=== PATIENT | male | born 1980 | race Hispanic/Latino ===

== ENCOUNTER 2018-04-18 21:12 | Inpatient (IN) | payer SELFPAY ==
[~2018-04-18] VITALS: Ht 177.8 cm; Wt 81.0 kg
[2018-04-18 21:52] LABS: BASOPHILS % (AUTO) 0.3 % (0.0-5.0); EOSINOPHILS % (AUTO) 1.6 % (0.0-8.0); HEMATOCRIT 42.3 % (42-54); LYMPHOCYTES % (AUTO) 6.8 % (21.0-51.0); MEAN CORPUSCULAR HEMOGLOBIN 30.3 pg (27.0-33.0); MEAN CORPUSCULAR VOLUME 89.2 fL (79-99); MONOCYTES % (AUTO) 6.8 % (3.0-13.0); NEUTROPHILS % (AUTO) 84.5 % (40.0-77.0); PLATELET COUNT (AUTO) 318 K/uL (130-400); RED BLOOD CELL COUNT(AUTO) 4.75 MIL/uL (4.50-6.20); RED CELL DISTRIBUTION WIDTH 13.3 % (11.0-15.5)
[2018-04-18 21:53] LABS: APPEARANCE,URINE Cloudy (CLEAR); BILIRUBIN,URINE Large (NEGATIVE); COLOR,URINE Dark Yellow (YELLOW); GLUCOSE, URINE (UA) Negative (NEGATIVE); KETONES,URINE 15 mg/dL (NEGATIVE); LEUKOCYTE ESTERASE ,URINE Small (NEGATIVE); NITRATE,URINE Positive (NEGATIVE); OCCULT BLOOD,URINE Negative (NEGATIVE); PROTEIN,URINE POS 1+ (NEGATIVE)
[2018-04-18 22:01] LABS: AMPHET/METH SCREEN,URINE NEGATIVE (NEGATIVE); BARBITURATE SCREEN, URINE NEGATIVE (NEGATIVE); BENZODIAZEPINES SCREEN,URINE NEGATIVE (NEGATIVE); CANNABINOID SCREEN,URINE NEGATIVE (NEGATIVE); COCAINE SCREEN,URINE POSITIVE (NEGATIVE); OPIATE SCREEN,URINE NEGATIVE (NEGATIVE); PHENCYCLIDINE SCREEN,URINE NEGATIVE (NEGATIVE)
[2018-04-18 22:07] LABS: BACTERIA,URINE Few /HPF (None Seen); CALCIUM OXALATE CRYSTALS,UR Few /LPF (None Seen); MUCUS,URINE Moderate LPF (None Seen); RBC,URINE 0-1 /HPF (0-1); SQUAMOUS EPITHELIAL CELL,UR Rare /HPF (0-2)
[2018-04-18 22:08] LABS: CREATININE 1.3 mg/dL (0.5-1.5); POTASSIUM 3.5 mmol/L (3.5-5.1)
[2018-04-18 22:22] LABS: ALBUMIN 3.9 g/dL (3.5-5.0); BILIRUBIN,TOTAL 4.2 mg/dL (0.2-1.0); TOTAL PROTEIN, SERUM 7.7 g/dL (6.0-8.3)
[2018-04-18] MEDS ORDERED: KETOROLAC TROMETHAMINE 30MG/ML ONE (23:47)
[2018-04-18] MEDS ORDERED: ONDANSETRON HCL 4 MG/2 ML VIAL ONE (23:47)
[2018-04-19] MEDS ORDERED: FENTANYL CITRATE PF 50 MCG/1 ML 2ML VIAL ONE (00:24)
[2018-04-19 01:15] VITALS: BP 120/78
[2018-04-19] MEDS ORDERED: ONDANSETRON HCL 4 MG/2 ML VIAL IV PRN (01:15)
[2018-04-19] MEDS: ZOSYN 3.375GM+NS 50ML 50 ML IV SCH ×3 (02:36→17:17)
[2018-04-19] MEDS: SODIUM CHLORIDE 0.9% 1000ML 1,000 ML IV SCH ×4 (02:45→20:49)
[2018-04-19 04:00] VITALS: BP 120/76
[2018-04-19] MEDS: FAMOTIDINE/PF 20 MG/2 ML VIAL IV SCH ×2 (07:38→20:49)
[2018-04-19] MEDS: MORPHINE SULFATE 4 MG/1ML SYG IV PRN ×3 (07:39→17:22)
[2018-04-19 08:00] VITALS: BP 128/67
--- NOTE | 2018-04-19 11:19 | NUR ---
NICOLAS Jameson met with pt who lives with his Jenae [address] [phone]. Pt is self employed, independent, drives, no DME or HH. States he has never been sick before, has no PCP, takes no meds. Denies dc needs, plan is home Addendum: 04/19/18 at 1121 by ROSS MURRAY SS Amended: Links added.
[2018-04-19 16:00] VITALS: BP 131/84
[2018-04-19 20:00] VITALS: BP 112/72
--- NOTE | 2018-04-19 23:45 | NUR ---
SHOWERED Pt took a shower,remains NPO.Denies abdominal pain or discomfort.
[2018-04-20] VITALS (24 sets, daily range): BP systolic 96–119; BP diastolic 56–75
[2018-04-20] MEDS: ZOSYN 3.375GM+NS 50ML 50 ML IV SCH ×3 (02:19→17:08)
[2018-04-20 05:58] LABS: BASOPHILS % (AUTO) 0.7 % (0.0-5.0); EOSINOPHILS % (AUTO) 4.8 % (0.0-8.0); HEMATOCRIT 38.2 % (42-54); LYMPHOCYTES % (AUTO) 21.4 % (21.0-51.0); MEAN CORPUSCULAR HEMOGLOBIN 30.7 pg (27.0-33.0); MEAN CORPUSCULAR HGB CONC 33.9 g/dL (32.0-36.0); MEAN CORPUSCULAR VOLUME 90.7 fL (79-99); MONOCYTES % (AUTO) 14.7 % (3.0-13.0); NEUTROPHILS % (AUTO) 58.4 % (40.0-77.0); PLATELET COUNT (AUTO) 287 K/uL (130-400); RED BLOOD CELL COUNT(AUTO) 4.21 MIL/uL (4.50-6.20); RED CELL DISTRIBUTION WIDTH 13.5 % (11.0-15.5); WHITE BLOOD COUNT (AUTO) 6.1 K/uL (4.8-10.8)
[2018-04-20 06:12] LABS: BILIRUBIN,DIRECT 5.5 mg/dL (0.0-0.3); BILIRUBIN,TOTAL 6.5 mg/dL (0.2-1.0); CREATININE 1.1 mg/dL (0.5-1.5); POTASSIUM 3.8 mmol/L (3.5-5.1); TOTAL PROTEIN, SERUM 6.3 g/dL (6.0-8.3)
[2018-04-20] MEDS: SODIUM CHLORIDE 0.9% 1000ML 1,000 ML IV SCH ×3 (06:46→22:55)
[2018-04-20] MEDS: FAMOTIDINE/PF 20 MG/2 ML VIAL IV SCH ×2 (08:40→19:50)
[2018-04-20] MEDS: ACETAMINOPHEN 325 MG TAB PO PRN (10:02)
--- NOTE | 2018-04-20 11:02 | NUR ---
MD GASOTN GIVENS VISITED WITH PATIENT. POC DISCUSSED. AWARE OF MRCP RESULTS. NEW ORDERS RECEIVED AND CARRIED OUT. GI CONSULT IN PLACE. DR.NOLAN ARRIETA PAGED. RETURN CALL PENDING. PATIENT AWARE. NO QUESTIONS OR CONCERNS VOICED AT THIS TIME. PATIENT MEDICATED PER MARS FOR COMPLAINTS OF A HEADACHE. SPOUSE AT BEDSIDE. CALL LIGHT WITHIN REACH. WILL CONTINUE TO BE OBSERVED. Addendum: 04/20/18 at 1105 by JENS ARRIETA RN RN Amended: Links added.
[2018-04-20] MEDS: MORPHINE SULFATE 4 MG/1ML SYG IV PRN ×4 (12:06→21:20)
[2018-04-20] MEDS ORDERED: IOHEXOL-350 50ML VIAL IV ONE (12:29)
[2018-04-20] MEDS ORDERED: LIDOCAINE HCL-MPF 2% 5ML VIAL ONE (12:42)
[2018-04-20] MEDS ORDERED: PROPOFOL 10 MG/ML 20ML VIAL IV ONE (12:42)
[2018-04-20] MEDS ORDERED: FENTANYL CITRATE PF 50 MCG/1 ML 2ML VIAL ONE (12:42)
[2018-04-20] MEDS ORDERED: PROPOFOL 1000 MG/100 ML 100 ML IV ONE ×2 (12:42→13:30)
[2018-04-20] MEDS ORDERED: GLYCOPYRROLATE 0.2 MG/ML 5 ML VIAL ONE (12:42)
[2018-04-20] MEDS ORDERED: SUCCINYLCHOLINE CHLORIDE 20 MG/ML 10 ML VIAL ONE (13:10)
[2018-04-20] MEDS ORDERED: GLUCAGON 1MG KIT 1 MG ML ONE (13:19)
[2018-04-20] MEDS ORDERED: DEXAMETHASONE SOD PHOSPHATE 4 MG/ML 1ML VIAL ONE (14:02)
--- NOTE | 2018-04-20 14:34 | NUR ---
REPORT RECEIVED FROM NETTE CHURCHILL FROM GI LAB. CALLED WITH NEW ORDERS. NEW ORDERS RECEIVED AND CARRIED OUT. PENDING PATIENT TO ARRIVE TO FLOOR. Addendum: 04/20/18 at 1435 by JENS ARRIETA RN RN Amended: Links added.
--- NOTE | 2018-04-20 14:48 | NUR ---
PATIENT RECEIVED FROM GI LAB. PATIENT RESTING IN BED WITH OU CLOSED. EASILY AROUSED. NO COMPLAINTS OF PAIN VOICED AT THIS TIME. MOTHER AT BEDSIDE. VITALS STABLE. AFEBRILE. WILL CONTINUE TO BE OBSERVED. CALL LIGHT WITHIN REACH. Addendum: 04/20/18 at 1511 by JENS ARRIETA RN RN Amended: Links added.
--- NOTE | 2018-04-20 20:05 | NUR ---
PAIN Paged Dr Umanzor informed re pt.s complained of severe abdominal pain.
--- NOTE | 2018-04-20 20:10 | NUR ---
MORPHINE Pt medicated with Morphine 2 mg iv as per Dr Umanzor order.
[2018-04-20] MEDS ORDERED: MORPHINE SULFATE 2 MG/ML 1ML SYG IVP ONE (21:00)
--- NOTE | 2018-04-20 21:22 | NUR ---
PAIN Pt cont to cry and complain of severe abdominal pain.Medicated with Morphine [address] Baron order.
--- NOTE | 2018-04-20 22:41 | NUR ---
PAIN Pt cont with pain,notified hospitalist Marco Jimenez.
[2018-04-20] MEDS ORDERED: HYDROMORPHONE HCL 2 MG/ML VIAL IVP ONE (22:45)
[2018-04-20] MEDS: PROMETHAZINE HCL 25 MG/ML 1ML AMPULE IM SCH (22:47)
--- NOTE | 2018-04-20 22:58 | NUR ---
PAIN Dilaudid 1 mg and Phenergan 25 mg im given pt very restless.Complaining of severe abdominal pain.
--- NOTE | 2018-04-20 23:19 | NUR ---
MED EFFECT Pt appears more calm,falling asleep.Resp even and unlabored.Placed on 02 at 2 lpm via nc to help him relaxed,he was hyperventilating earlier.Advised to take slow deep breath.
[2018-04-21] VITALS (20 sets, daily range): BP systolic 100–149; BP diastolic 47–101
[2018-04-21] MEDS: ZOSYN 3.375GM+NS 50ML 50 ML IV SCH ×3 (00:57→17:57)
[2018-04-21] MEDS: MORPHINE SULFATE 4 MG/1ML SYG IV PRN ×4 (04:17→20:22)
[2018-04-21 05:47] LABS: BASOPHILS % (AUTO) 0.2 % (0.0-5.0); EOSINOPHILS % (AUTO) 0.1 % (0.0-8.0); HEMATOCRIT 39.6 % (42-54); LYMPHOCYTES % (AUTO) 5.6 % (21.0-51.0); MEAN CORPUSCULAR HEMOGLOBIN 29.2 pg (27.0-33.0); MEAN CORPUSCULAR HGB CONC 32.4 g/dL (32.0-36.0); MEAN CORPUSCULAR VOLUME 90.1 fL (79-99); MONOCYTES % (AUTO) 7.6 % (3.0-13.0); NEUTROPHILS % (AUTO) 86.5 % (40.0-77.0); PLATELET COUNT (AUTO) 266 K/uL (130-400); RED CELL DISTRIBUTION WIDTH 13.3 % (11.0-15.5)
[2018-04-21 05:57] LABS: INR 0.9 (0.85-1.15); PARTIAL THROMBOPLASTIN TIME 28.8 SEC (26.3-35.5); PROTHROMBIN TIME 9.5 SEC (9.6-11.6)
[2018-04-21 06:02] LABS: BILIRUBIN,TOTAL 6.6 mg/dL (0.2-1.0); POTASSIUM 3.9 mmol/L (3.5-5.1); TOTAL PROTEIN, SERUM 6.6 g/dL (6.0-8.3)
[2018-04-21] MEDS: SODIUM CHLORIDE 0.9% 1000ML 1,000 ML IV SCH ×3 (06:26→21:16)
--- NOTE | 2018-04-21 09:00 | NUR ---
MD MARANDA GIVENS VISITED WITH PATIENT. POC DISCUSSED. NO NEW ORDERS AT THIS TIME. PATIENT AWARE. ALL QUESTIONS ANSWERED BY MD. NO SIGNS OF DISTRESS NOTED AT THIS TIME. FAMILY AT BEDSIDE. CALL LIGHT WITHIN REACH. WILL CONTINUE TO BE OBSERVED. Addendum: 04/21/18 at 1505 by JENS ARRIETA RN RN Amended: Links added.
[2018-04-21] MEDS: FAMOTIDINE/PF 20 MG/2 ML VIAL IV SCH ×2 (09:17→20:21)
[2018-04-21] MEDS ORDERED: DEXAMETHASONE SOD PHOSPHATE 10MG/ML 1ML VIAL ONE (10:02)
[2018-04-21] MEDS ORDERED: LIDOCAINE PF 2% 5ML ABBOJECT ONE (10:02)
[2018-04-21] MEDS ORDERED: NEOSTIGMINE 5MG/5ML SYR IV ONE (10:03)
[2018-04-21] MEDS ORDERED: MIDAZOLAM HCL 1 MG/ML 2ML VIAL ONE ×2 (10:03→10:13)
[2018-04-21] MEDS ORDERED: PROPOFOL 10 MG/ML 20ML VIAL IV ONE ×2 (10:03→10:09)
[2018-04-21] MEDS ORDERED: GLYCOPYRROLATE 1 MG/5 ML SYRINGE ONE (10:03)
[2018-04-21] MEDS ORDERED: ONDANSETRON HCL 4 MG/2 ML VIAL ONE (10:04)
[2018-04-21] MEDS ORDERED: ROCURONIUM 10MG/1ML SYR 10 MG/ML ML ONE (10:04)
[2018-04-21] MEDS ORDERED: FENTANYL CITRATE PF 50 MCG/1 ML 2ML VIAL ONE ×2 (10:04→10:54)
[2018-04-21] MEDS ORDERED: SUCCINYLCHOLINE 200MG/10ML SYR ONE (10:05)
[2018-04-21] MEDS ORDERED: DEXAMETHASONE SOD PHOSPHATE 4 MG/ML 1ML VIAL ONE (10:05)
[2018-04-21] MEDS ORDERED: LIDOCAINE HCL 1% MDV 50ML VIAL ONE (10:39)
[2018-04-21] MEDS ORDERED: HEPARIN SODIUM 1000UNIT/ML 10ML VIAL ONE (10:39)
[2018-04-21] MEDS ORDERED: IODIXANOL 320 MG/ML 100 ML VIAL ONE (10:39)
[2018-04-21] MEDS ORDERED: SODIUM BICARB 50MEQ 50ML VIAL ONE (10:39)
[2018-04-21] MEDS ORDERED: IOHEXOL-350 50ML VIAL IV ONE (10:42)
[2018-04-21] MEDS ORDERED: INDOMETHACIN 50 MG SUPP.RECT RC ONE (13:00)
[2018-04-21] MEDS ORDERED: MEPERIDINE-PF 25 MG/ML SYG ONE ×2 (13:58→14:14)
--- NOTE | 2018-04-21 14:51 | NUR ---
PATIENT BACK FROM ERCP, MEDICATED PER MARS FOR COMPLAINTS OF PAIN. FAMILY AT BEDSIDE. VITALS STABLE. AFEBRILE. DRESSING TO RIGHT LATERAL ABDOMEN IN PLACE. DRY AND INTACT. IVF INFUSING. NO NAUSEA OR VOMITING NOTED. HOB ELEVATED. WILL CONTINUE TO BE OBSERVED. Addendum: 04/21/18 at 1455 by JENS ARRIETA RN RN Amended: Links added.
--- NOTE | 2018-04-21 20:22 | NUR ---
MORPHINE Medicated with Morphine for c/o abdominal pain,dressing to rt side dry and intact.No bleeding noted.
[2018-04-21] MEDS: PROMETHAZINE HCL 25 MG/ML 1ML AMPULE IM SCH (22:45)
--- NOTE | 2018-04-21 23:46 | NUR ---
NPO Pt instructed re Npo status after midnight.Verbalized understanding.
[2018-04-22] MEDS: ZOSYN 3.375GM+NS 50ML 50 ML IV SCH ×3 (02:27→16:36)
[2018-04-22 03:40] VITALS: BP 91/44
[2018-04-22 06:22] LABS: HEMATOCRIT 35.5 % (42-54); MEAN CORPUSCULAR HEMOGLOBIN 30.6 pg (27.0-33.0); MEAN CORPUSCULAR HGB CONC 34.2 g/dL (32.0-36.0); MEAN CORPUSCULAR VOLUME 89.5 fL (79-99); PLATELET COUNT (AUTO) 276 K/uL (130-400); RED BLOOD CELL COUNT(AUTO) 3.96 MIL/uL (4.50-6.20); RED CELL DISTRIBUTION WIDTH 13.3 % (11.0-15.5); WHITE BLOOD COUNT (AUTO) 10.8 K/uL (4.8-10.8)
[2018-04-22 06:38] LABS: ALBUMIN 2.6 g/dL (3.5-5.0); BILIRUBIN,DIRECT 3.7 mg/dL (0.0-0.3); BILIRUBIN,TOTAL 4.8 mg/dL (0.2-1.0); CREATININE 0.9 mg/dL (0.5-1.5); POTASSIUM 3.6 mmol/L (3.5-5.1); TOTAL PROTEIN, SERUM 6.1 g/dL (6.0-8.3)
[2018-04-22 07:00] VITALS: BP 126/83
[2018-04-22] MEDS: SODIUM CHLORIDE 0.9% 1000ML 1,000 ML IV SCH ×2 (07:16→18:28)
[2018-04-22] MEDS: FAMOTIDINE/PF 20 MG/2 ML VIAL IV SCH ×2 (09:15→20:59)
[2018-04-22] MEDS: MORPHINE SULFATE 4 MG/1ML SYG IV PRN ×3 (09:16→20:59)
[2018-04-22 11:00] VITALS: BP 102/67
--- NOTE | 2018-04-22 12:00 | NUR ---
ROUNDS PATIENT UP AD BRENT AMBULATING IN HALLWAY. NO COMPLAINTS OF PAIN VOICED. RESP EVEN AND UNLABORED, NO SOB NOTED. ON ROOM AIR. VITALS STABLE. AFEBRILE. TOLERATING IVF WELL. NS INFUSING AT 100ML/HR. TOLERATING FULL LIQUID DIET. NO NAUSEA OR VOMITING NOTED. FAMILY AT BEDSIDE. CALL LIGHT WITHIN REACH. WILL CONTINUE TO BE OBSERVED. Addendum: 04/22/18 at 1814 by JENS ARRIETA RN RN Amended: Links added.
[2018-04-22 16:00] VITALS: BP 115/70
--- NOTE | 2018-04-22 18:27 | NUR ---
MD LOW PATIENT RESTING IN BED WITH OU CLOSED. EASILY AROUSED. NO COMPLAINTS OF PAIN VOICED AT THIS TIME. VISITED WITH PATIENT. POC DISCUSSED. NO NEW ORDERS AT THIS TIME. POSSIBLE SURGERY ON FRIDAY. WAITING ON BILIRUBIN TO NORMALIZE. PATIENT AND FAMILY AT BEDSIDE AWARE. NO QUESTIONS OR CONCERNS VOICED AT THIS TIME. CALL LIGHT WITHIN REACH. WILL CONTINUE TO BE OBSERVED. Addendum: 04/22/18 at 1837 by JENS ARRIETA RN RN Amended: Links added.
[2018-04-22 20:00] VITALS: BP 112/77
[2018-04-23] VITALS: BP 126/81
[2018-04-23] MEDS: SODIUM CHLORIDE 0.9% 1000ML 1,000 ML IV SCH (01:48)
[2018-04-23] MEDS: KETOROLAC TROMETHAMINE 15MG/ML IM PRN ×2 (01:48→18:58)
[2018-04-23] MEDS: ZOSYN 3.375GM+NS 50ML 50 ML IV SCH ×3 (01:49→18:56)
[2018-04-23 04:00] VITALS: BP 125/75
[2018-04-23 04:51] LABS: HEMATOCRIT 35.4 % (42-54); MEAN CORPUSCULAR HEMOGLOBIN 29.5 pg (27.0-33.0); MEAN CORPUSCULAR HGB CONC 33.4 g/dL (32.0-36.0); MEAN CORPUSCULAR VOLUME 88.3 fL (79-99); PLATELET COUNT (AUTO) 260 K/uL (130-400); RED BLOOD CELL COUNT(AUTO) 4.01 MIL/uL (4.50-6.20); RED CELL DISTRIBUTION WIDTH 13.3 % (11.0-15.5); WHITE BLOOD COUNT (AUTO) 12.3 K/uL (4.8-10.8)
[2018-04-23 05:09] LABS: ALBUMIN 2.7 g/dL (3.5-5.0); BILIRUBIN,TOTAL 6.3 mg/dL (0.2-1.0); CREATININE 0.9 mg/dL (0.5-1.5); TOTAL PROTEIN, SERUM 6.5 g/dL (6.0-8.3)
[2018-04-23 05:13] LABS: POTASSIUM 2.9 mmol/L (3.5-5.1)
[2018-04-23] MEDS ORDERED: POTASSIUM CHLORIDE 10% ELIXIR 20 MEQ/15 ML UDCUP PO PRN (05:45)
[2018-04-23] MEDS ORDERED: LIDOCAINE HCL-MPF 1% 2ML VIAL IVP PRN ×2 (05:45)
[2018-04-23] MEDS ORDERED: POTASSIUM CHLORIDE 20MEQ/100ML 100 ML IV PRN ×2 (05:45)
[2018-04-23 07:00] VITALS: BP 115/76
[2018-04-23] MEDS: POTASSIUM CHLORIDE 20 MEQ ERTAB PO PRN ×4 (07:49→23:16)
[2018-04-23] MEDS: ACETAMINOPHEN 325 MG TAB PO PRN (09:33)
[2018-04-23] MEDS: FAMOTIDINE/PF 20 MG/2 ML VIAL IV SCH ×2 (09:34→21:47)
[2018-04-23 11:00] VITALS: BP 118/74
--- NOTE | 2018-04-23 13:00 | NUR ---
DR JOSIAH GENAO FOR ORDER OF LAP VITOR.
[2018-04-23 16:00] VITALS: BP 118/80
[2018-04-23] MEDS: D5 NS WITH 20 mEq KCl 1000ML 1,000 ML IV SCH (16:54)
--- NOTE | 2018-04-23 18:00 | NUR ---
DR. RAHMAN AT [facility] FOR NATAL[facility] ADLER TOMORROW. 2PM
--- NOTE | 2018-04-23 18:12 | NUR ---
DC PLAN WIAITNG ON LAP VITOR TOMORROW, WILL PLAN FURTHER AFTER SURGERY. DRAIN CAN BE LOOKED AFTER BY FAMILY.
[2018-04-23 20:00] VITALS: BP 130/79
[2018-04-24] VITALS: BP 116/78
[2018-04-24] MEDS: ZOSYN 3.375GM+NS 50ML 50 ML IV SCH ×3 (02:21→17:23)
[2018-04-24] MEDS: MORPHINE SULFATE 4 MG/1ML SYG IV PRN ×2 (03:59→12:22)
[2018-04-24 04:00] VITALS: BP 126/81
[2018-04-24 05:38] LABS: MEAN CORPUSCULAR HEMOGLOBIN 29.4 pg (27.0-33.0); MEAN CORPUSCULAR HGB CONC 33.4 g/dL (32.0-36.0); PLATELET COUNT (AUTO) 297 K/uL (130-400); RED BLOOD CELL COUNT(AUTO) 3.97 MIL/uL (4.50-6.20); RED CELL DISTRIBUTION WIDTH 13.3 % (11.0-15.5)
[2018-04-24 05:53] LABS: INR 0.94 (0.85-1.15); PARTIAL THROMBOPLASTIN TIME 33.6 SEC (26.3-35.5); PROTHROMBIN TIME 9.9 SEC (9.6-11.6)
[2018-04-24 05:56] LABS: ALBUMIN 2.7 g/dL (3.5-5.0); BILIRUBIN,TOTAL 2.5 mg/dL (0.2-1.0); CREATININE 0.8 mg/dL (0.5-1.5); POTASSIUM 3.6 mmol/L (3.5-5.1); TOTAL PROTEIN, SERUM 6.9 g/dL (6.0-8.3)
[2018-04-24 07:00] VITALS: BP 106/71
--- NOTE | 2018-04-24 07:19 | NUR ---
DR. RAHMAN VISITED WITH PATIENT. NEW ORDERS RECEIVED AND CARRIED OUT. SURGERY POSTPONED FOR TOMORROW 04/25/18 PATIENT AND CHARGE NURSE AWARE.
[2018-04-24] MEDS ORDERED: D5 NS WITH 20 mEq KCl 1000ML IV SCH (09:00)
[2018-04-24] MEDS: D5 NS WITH 20 mEq KCl 1000ML 1,000 ML IV SCH (09:52)
[2018-04-24] MEDS: FAMOTIDINE/PF 20 MG/2 ML VIAL IV SCH ×2 (09:52→20:55)
[2018-04-24 11:00] VITALS: BP 110/68
[2018-04-24] MEDS: LEVOFLOXACIN 500 MG/D5W 100 ML 100 ML IV SCH (11:51)
--- NOTE | 2018-04-24 14:00 | NUR ---
PATIENT AMBULATING AROUND THE UNIT. NO SIGNS OF DISTRESS NOTED.
--- NOTE | 2018-04-24 14:44 | NUR ---
Nutrition intervention: Nutrition notification for LOS. Pt admitted with acute cholelithiasis. Pt is scheduled for lap louie tomorrow. RD reviewed low fat diet options pt may benefit from. Pt verbalized understanding. RD to continue monitoring pt's nutrition status. Please consult RD if additional nutrition concerns arise. Addendum: 04/24/18 at [address] Amended: Links added.
[2018-04-24] MEDS: HYDROCODONE/ACETAMINOPHEN 5/325 MG TAB PO PRN (15:15)
[2018-04-24 16:00] VITALS: BP 121/78
--- NOTE | 2018-04-24 16:00 | NUR ---
CM DISCHARGE PLAN REMAINS HOME, SURGERY DELAYED,
[2018-04-24 19:35] VITALS: BP 119/93
[2018-04-25] VITALS (24 sets, daily range): BP systolic 105–131; BP diastolic 40–86
[2018-04-25] MEDS: ZOSYN 3.375GM+NS 50ML 50 ML IV SCH ×3 (02:27→17:10)
[2018-04-25 05:40] LABS: HEMATOCRIT 35.5 % (42-54); MEAN CORPUSCULAR HEMOGLOBIN 29.9 pg (27.0-33.0); MEAN CORPUSCULAR HGB CONC 33.5 g/dL (32.0-36.0); MEAN CORPUSCULAR VOLUME 89.2 fL (79-99); NUCLEATED RED BLOOD CELLS 0.1 % (0.0-0.19); PLATELET COUNT (AUTO) 340 K/uL (130-400); RED BLOOD CELL COUNT(AUTO) 3.98 MIL/uL (4.50-6.20); RED CELL DISTRIBUTION WIDTH 13.1 % (11.0-15.5); WHITE BLOOD COUNT (AUTO) 11.7 K/uL (4.8-10.8)
[2018-04-25 05:54] LABS: ALBUMIN 2.8 g/dL (3.5-5.0); BILIRUBIN,TOTAL 1.9 mg/dL (0.2-1.0); CREATININE 0.9 mg/dL (0.5-1.5); POTASSIUM 3.6 mmol/L (3.5-5.1); TOTAL PROTEIN, SERUM 7.4 g/dL (6.0-8.3)
[2018-04-25] MEDS: D5 NS WITH 20 mEq KCl 1000ML 1,000 ML IV SCH ×2 (06:30→17:11)
[2018-04-25] MEDS: FAMOTIDINE/PF 20 MG/2 ML VIAL IV SCH ×2 (09:37→21:18)
[2018-04-25] MEDS: LEVOFLOXACIN 500 MG/D5W 100 ML 100 ML IV SCH (09:41)
[2018-04-25] MEDS ORDERED: BUPIVACAINE/PF 0.5% 10ML VIAL ONE (12:30)
[2018-04-25] MEDS ORDERED: PROPOFOL 10 MG/ML 20ML VIAL IV ONE (12:33)
[2018-04-25] MEDS ORDERED: LIDOCAINE PF 2% 5ML ABBOJECT ONE (12:33)
[2018-04-25] MEDS ORDERED: MIDAZOLAM HCL 1 MG/ML 2ML VIAL ONE (12:33)
[2018-04-25] MEDS ORDERED: FENTANYL CITRATE PF 50 MCG/1 ML 2ML VIAL ONE ×2 (12:34→12:59)
[2018-04-25] MEDS ORDERED: ROCURONIUM 10MG/1ML SYR 10 MG/ML ML ONE (12:34)
[2018-04-25] MEDS: LACTATED RINGERS 1000ML 1,000 ML IV SCH (12:41)
[2018-04-25] MEDS ORDERED: GLYCOPYRROLATE 1 MG/5 ML SYRINGE ONE (13:22)
[2018-04-25] MEDS ORDERED: NEOSTIGMINE 5MG/5ML SYR IV ONE (13:23)
[2018-04-25] MEDS ORDERED: KETOROLAC TROMETHAMINE 30MG/ML ONE (14:19)
[2018-04-25] MEDS: HYDROCODONE/ACETAMINOPHEN 5/325 MG TAB PO PRN ×2 (17:11→23:13)
[2018-04-26] MEDS: ZOSYN 3.375GM+NS 50ML 50 ML IV SCH ×3 (02:15→18:05)
[2018-04-26] MEDS: LACTATED RINGERS 1000ML 1,000 ML IV SCH ×2 (02:16→15:21)
[2018-04-26 03:51] VITALS: BP 112/67
[2018-04-26 05:41] LABS: BASOPHILS % (AUTO) 0.5 % (0.0-5.0); HEMATOCRIT 34.9 % (42-54); MEAN CORPUSCULAR HEMOGLOBIN 30.9 pg (27.0-33.0); MEAN CORPUSCULAR HGB CONC 34.7 g/dL (32.0-36.0); MONOCYTES % (AUTO) 15.7 % (3.0-13.0); NEUTROPHILS % (AUTO) 68.8 % (40.0-77.0); PLATELET COUNT (AUTO) 394 K/uL (130-400); RED BLOOD CELL COUNT(AUTO) 3.92 MIL/uL (4.50-6.20); RED CELL DISTRIBUTION WIDTH 13.4 % (11.0-15.5); WHITE BLOOD COUNT (AUTO) 8.3 K/uL (4.8-10.8)
[2018-04-26 06:15] LABS: ALBUMIN 2.7 g/dL (3.5-5.0); BILIRUBIN,TOTAL 4.8 mg/dL (0.2-1.0); CREATININE 0.9 mg/dL (0.5-1.5); POTASSIUM 3.5 mmol/L (3.5-5.1); TOTAL PROTEIN, SERUM 7.1 g/dL (6.0-8.3)
[2018-04-26 08:00] VITALS: BP 122/60
[2018-04-26] MEDS: FAMOTIDINE/PF 20 MG/2 ML VIAL IV SCH ×2 (09:44→20:04)
[2018-04-26] MEDS: LEVOFLOXACIN 500 MG/D5W 100 ML 100 ML IV SCH (09:49)
[2018-04-26 12:00] VITALS: BP 105/70
[2018-04-26 16:00] VITALS: BP 111/41
[2018-04-26] MEDS: POTASSIUM CHLORIDE 20 MEQ ERTAB PO PRN (20:04)
--- NOTE | 2018-04-26 20:05 | NUR ---
MEDS PT BACK IN BED AFTER WALKING AROUND THE FLOOR. PT TOLERATED ACTIVITY WELL. DUE MEDS ADMINISTERED, TOLERATED WELL. PO POTASSIUM GIVEN FOR KCL=3.5. KEPT RESTED IN BED. ENCOURAGED TO REST AND SLEEP. CALL LIGHT WITHIN REACH. WILL CONTINUE TO MONITOR.
[2018-04-26 20:21] VITALS: BP 108/61
[2018-04-26 23:26] VITALS: BP 109/68
--- NOTE | 2018-04-27 02:00 | NUR ---
ROUNDS PT RESTING WELL, FAIRLY ASLEEP WITH RESPIRATIONS EVEN AND UNLABORED. NO NOTED DISTRESS. KEPT UNDISTURBED FOR NOW.
[2018-04-27] MEDS: ZOSYN 3.375GM+NS 50ML 50 ML IV SCH (02:31)
[2018-04-27 03:39] VITALS: BP 98/47
[2018-04-27] MEDS: LACTATED RINGERS 1000ML 1,000 ML IV SCH (03:58)
[2018-04-27 05:41] LABS: HEMATOCRIT 34.7 % (42-54); MEAN CORPUSCULAR HEMOGLOBIN 29.8 pg (27.0-33.0); MEAN CORPUSCULAR HGB CONC 33.3 g/dL (32.0-36.0); MEAN CORPUSCULAR VOLUME 89.5 fL (79-99); PLATELET COUNT (AUTO) 406 K/uL (130-400); RED BLOOD CELL COUNT(AUTO) 3.88 MIL/uL (4.50-6.20); RED CELL DISTRIBUTION WIDTH 13.4 % (11.0-15.5); WHITE BLOOD COUNT (AUTO) 8.9 K/uL (4.8-10.8)
[2018-04-27 05:53] LABS: ALBUMIN 2.8 g/dL (3.5-5.0); BILIRUBIN,TOTAL 1.7 mg/dL (0.2-1.0); POTASSIUM 4.1 mmol/L (3.5-5.1); TOTAL PROTEIN, SERUM 7.3 g/dL (6.0-8.3)
[2018-04-27 07:00] VITALS: BP 108/60
--- NOTE | 2018-04-27 07:10 | NUR ---
REPORT BEDSIDE REPORT GIVEN TO NETTE VILLALOBOS. PT VERBALIZES HE WANTS TO GO HOME BUT IS AWARE THAT HE NEEDS TO WAIT FOR SURGEON FOR D/C ORDERS. ENDORSING TO AM SHIFT FOR MORE CARE.
--- NOTE | 2018-04-27 08:00 | NUR ---
AM SHIFT ASSESSMENT. WALKING IN HALLWAY AND DENIES ANY ABD. PAIN AT THIS TIME.
[2018-04-27] MEDS: FAMOTIDINE/PF 20 MG/2 ML VIAL IV SCH (09:00)
[2018-04-27] MEDS ORDERED: LEVO500T89 PO (10:49)
[2018-04-27 11:00] VITALS: BP 100/62
--- NOTE | 2018-04-27 12:20 | NUR ---
discharged now using teach back. rx for levofloxin 500mg to be taken for 5 days given plus appt. to follow up with dr. shahid in 1 week. incision care also given and changed out band aids. both pt. and spouse verbalized understanding of all inst. given.
== END 2018-04-27 12:23 | disposition home or self-care (01) | DRG 418 ==
LOC: EDH 21:12 → EDHIP 04-19 00:32 → OBSVTOIN 04-19 00:32 → 3AH 04-19 01:12
PROVIDERS: ADMIT Hospitalist; ATTEND Hospitalist
PROC: 3E02340 Introduction of Influenza Vaccine into Muscle, Percutaneous Approach (ICD-10-PCS; 2018-04-19)
PROC: 0FJD8ZZ Inspection of Pancreatic Duct, Via Natural or Artificial Opening Endoscopic (ICD-10-PCS; 2018-04-20)
PROC: BF141ZZ Fluoroscopy of Gallbladder, Bile Ducts and Pancreatic Ducts using Low Osmolar Contrast (ICD-10-PCS; 2018-04-21)
PROC: 0D9930Z Drainage of Duodenum with Drainage Device, Percutaneous Approach (ICD-10-PCS; 2018-04-21)
PROC: 0FT44ZZ Resection of Gallbladder, Percutaneous Endoscopic Approach (ICD-10-PCS; principal; 2018-04-25 12:42)
DX: K80.62 Calculus of gallbladder and bile duct with acute cholecystitis without obstruction (principal); N39.0 Urinary tract infection, site not specified; R79.89 Other specified abnormal findings of blood chemistry; F14.10 Cocaine abuse, uncomplicated; F17.210 Nicotine dependence, cigarettes, uncomplicated; I10 Essential (primary) hypertension; Z23 Encounter for immunization
CPT/HCPCS: 10030; 36415; 43262; 43264; 47541; 71045; 74181; 74330; 76705; 80048; 80053; 80076; 80305; 81001; 82150; 83690; 84484; 85025; 85027; 85610; 85730; 87088; 87804; 88304; 93005; C1769; C1773; C1894; G0378; G9654; J0330; J1100; J1170; J1610; J1644; J1885; J1956; J2001; J2175; J2250; J2270; J2405; J2543; J2550; J2704; J2710; J3010; J3480; J3490; J7030; J7120; Q2035; Q9967